=== PATIENT | female | born 1960 | race Caucasian/White ===

== ENCOUNTER 2018-11-20 07:16 | Day surgery (SDC) | payer OTHER ==
[2018-11-17 14:38] VITALS: BMI 42.5
[2018-11-20] VITALS (13 sets, daily range): BP systolic 101–180; BP diastolic 33–70; PULSE 66–98; RESP 16–29; Ht 160 cm; Wt 138.3 kg
[~2018-11-20] VITALS: Ht 160 cm; Wt 138.3 kg
[~2018-11-20 07:16] MED LIST: AMLO5TAB4 PO; ASPI-817 PO; BENA20TA4 PO; GLYCOPYRROLATE 0.4 MG INJ ONE; HYDR-3498 PO; LEVO250T9 PO; NEOSTIGMINE 3 MG/3 ML SYRINGE ONE; TRIA1TAB PO
--- NOTE | 2018-11-20 07:45 | HPN ---
Date/Time of Note Date/Time of Note DATE: 11/20/18 TIME: 07:45 Interval H&P Admission Note Pt. seen H&P reviewed: No system changes YVETTE GAGE MD Nov 20, 2018 07:45
[2018-11-20] MEDS ORDERED: METF-849 PO (08:04)
[2018-11-20] MEDS ORDERED: SIMV10TA PO (08:06)
--- NOTE | 2018-11-20 09:38 | PREAC ---
Date/Time of Note Date/Time of Note DATE: 11/20/18 TIME: 09:37 Anesthesia Eval and Record Evaluation Time Pre-Procedure Interview DATE: 11/20/18 TIME: 09:37 Age 58 Sex female NPO: 8 hrs Preoperative diagnosis R knee pain Planned procedure R knee arthroscopy Past Medical History Past Medical History: Includes Cardio: HTN, Dyslipidemia Endo: Diabetes GI: Morbid obesity Surgery & Anesthesia Issues No known issue Meds Anticoagulation: No Beta Melina within 24 hr: No Reason Beta Melina not given: Pt. not on B-Melina Reported Medications Simvastatin* (Zocor*) 10 Mg Tablet, 10 MG PO QHS, #30 TAB 11/20/18 Metformin* (Glucophage*) 500 Mg Tab, 500 MG PO BID WITH MEALS, #90 TAB 11/20/18 Aspirin* (Aspirin* EC) 81 Mg Tablet.dr, 81 MG PO DAILY, TAB 07/11/15 Triamterene-HCTZ* (Triamterene-HCTZ*) 37.5 - 25 Mg Tablet, 1 TAB PO DAILY, TAB 07/11/15 Benazepril Hcl* (Benazepril Hcl*) 20 Mg Tablet, 20 MG PO DAILY, TAB 07/11/15 Amlodipine Besylate* (Norvasc*) 5 Mg Tablet, 5 MG PO DAILY, TAB 07/11/15 Hydrocodone Bit-Acetaminophen* ([place]*) 5-325 Mg Tab, 1 TAB PO Q4H PRN for PAIN, TAB 08/05/14 Discontinued Scripts Levofloxacin* (Levofloxacin*) 250 Mg Tablet, 250 MG PO DAILY for 3 Days, TAB Prov:[facility] ASSISTANT 07/16/15 Meds reviewed: Yes Allergies Coded Allergies: ibuprofen (Verified Allergy, Severe, NAUSEA, 11/20/18) PER PT Penicillins (Unverified Allergy, Unknown, 07/11/15) naproxen (Verified Adverse Reaction, Unknown, ANXIETY, 11/20/18) PER PT Allergies Reviewed: Yes Labs/Studies Labs Reviewed: Reviewed by anesthesiologist test: Negative Studies: ECG Pre-procedure Exam Airway: Adequate mouth opening, Adequate thyromental dist Mallampati: Mallampati II Teeth: Normal Lung: Normal Heart: Normal ASA Physical Status ASA physical status: 3 Emergency: None Planned Anesthetic General/MAC: ETT Pre-operative Attestations Prior to commencing anesthesia and surgery, the patient was re-evaluated, there was verification of: *The patient's identity *The results of appropriate recent lab work and preoperative vital signs *The above evaluation not changing prior to induction *Anesthetic plan, risk benefits, alternative and complications discussed with patient/family; questions answered; patient/family understands, accepts and wishes to proceed. JESSICA YBARRA Nov 20, 2018 09:38
[2018-11-20] MEDS ORDERED: ROPIVACAINE 0.5 % 30 ML VIAL ONE (09:50)
[2018-11-20] MEDS ORDERED: LIDOCAINE 1% (MPF) 30 ML INJ ONE (09:51)
[2018-11-20] MEDS ORDERED: morphine SULFATE/PF (10 MG/10 ML) INJ ONE (09:51)
[2018-11-20] MEDS ORDERED: HEPARIN 1000 UNITS/ML 10 ML INJ ONE (09:51)
[2018-11-20] MEDS ORDERED: NEOMYC/POLYMYX/BACIT 30 GM OINT ONE (09:51)
[2018-11-20] MEDS ORDERED: METOCLOPRAMIDE 10 MG INJ IV PRN (10:00)
[2018-11-20] MEDS ORDERED: ALBUTEROL 0.083% (NEB) 2.5 MG/3 ML AMP HHN PRN (10:00)
[2018-11-20] MEDS ORDERED: MEPERIDINE 25 MG INJ IV PRN (10:00)
[2018-11-20] MEDS ORDERED: DIPHENHYDRAMINE 50 MG INJ IV PRN (10:00)
[2018-11-20] MEDS ORDERED: hydrALAzine 20 MG INJ IV PRN (10:00)
[2018-11-20] MEDS ORDERED: FENTAnyl 50 MCG/ML VIAL IV PRN ×3 (10:00)
[2018-11-20] MEDS ORDERED: HYDROmorphONE 1 MG/5 ML IV SYRINGE IV PRN ×3 (10:00)
[2018-11-20] MEDS ORDERED: LABETALOL HCL 20MG INJ IV PRN (10:00)
[2018-11-20] MEDS ORDERED: ONDANSETRON 4 MG INJ IV PRN (10:00)
[2018-11-20] MEDS ORDERED: FENTAnyl 50 MCG/ML VIAL ONE (10:14)
[2018-11-20] MEDS ORDERED: LABETALOL HCL 20MG INJ ONE (10:24)
[2018-11-20] MEDS ORDERED: CLINDAMYCIN 900 MG/D5W (PMX) 50 ML IVPB ONE (10:29)
[2018-11-20] MEDS ORDERED: SUCCINYLCHOLINE CHLORIDE 100 MG/5 ML SYG IV ONE (10:29)
[2018-11-20] MEDS ORDERED: ROCURONIUM 50 MG INJ ONE (10:29)
[2018-11-20] MEDS ORDERED: LIDOCAINE 100 MG SYRINGE ONE (10:29)
[2018-11-20] MEDS ORDERED: PROPOFOL 20 ML ONE (10:29)
[2018-11-20] MEDS ORDERED: SUGAMMADEX SODIUM 200 MG/2 ML VIAL IV ONE (11:57)
--- NOTE | 2018-11-20 12:01 | NUR ---
RECEIVED RESPONSIVE WITH OXYGEN MASK ON, BREATHING WITH EASE. RIGHT LEG DRESSING DRY AND INTACT, LEG IMMOBILIZER IN PLACE, LEG/FEET WARM TO TOUCH AND GOOD CAP REFILL, ICE PACK PLACED OVER RIGHT KNEE.
--- NOTE | 2018-11-20 12:11 | OPR ---
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 RIGHT KNEE MEDIAL MENISCAL TEAR RIGHT KNEE MEDIAL TIBIAL PLATEAU INSUFFICIENCY FRACTURE Operation/Procedure Performed Right knee arthroscopy with chondroplasty and partial medial meniscectomy Right knee Harbert of bone marrow aspirate concentrate from the proximal tibia and application to the medial femoral condyle Right knee Arthroscopically aided treatment of tibial fracture, proximal medial tibial plateau; unicondylar, includes internal fixation, when performed (includes arthroscopy) Surgeon Yvette Gage MD Conference Assistant None Anesthesia Type: general, other (Local) Anesthesiologist: JESSICA YBARRA Tourniquet Time: See anesthesia note Estimated Blood Loss: 10 - 50 ml's Transfusion none Specimen none Grafts/Implants Natalia [employer] [id number] Arthrex BMAC Complications none Pt Condition Post Procedure: stable Disposition: PACU Indications Patient is a 58-year-old female with a right knee medial meniscal tear and 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 Given her ongoing pain and failure of nonoperative management; and patient's lack of interest in going fo rward with any sort of further arthroplasty patient would like to proceed with a sub-chondroplasty and a knee arthroscopy. Risk Note: Patient was explained the risks and benefits of surgery and the patient's [place] language including not limited to infection, bleeding, injury to blood vessels, nerves, ligaments or tendons. Risks of anesthesia, deep vein thrombosis and need for reduce future surgery. Patient acknowledged these risk by signing the surgical consent form. Procedure Description The correct operative site was noted and marked in the preoperative holding area. The patient was then brought back into the operative theater, placed supine on the operative table. Right knee was examined under anesthesia. Range of motion was 0-120. There is no varus or valgus or anterior or posterior instability. There is crepitus noticed at the patellofemoral joint. Tourniquet was then placed on the operative extremity thigh non-sterilely. Patient was then given preoperative antibiotics and then prepped and draped in normal sterile fashion. A timeout was taken and all parties in the room agreed it was the correct patient, correct extremity and correct procedure. Using a Jamshidi needle approximately 60 cc of bone marrow aspirate concentrate was removed from the proximal tibia. It was sent off for centrifugation using the ArthGro Davey machine. Standard anterior lateral portal was created and the knee joint was entered with a blunt tipped trocar, followed by 30 arthroscope. Inflow was achieved with a pump and the pressure maintained at approximately 50 mmHg. A routine arthroscopic surgery was performed. Suprapatella pouch was unremarkable. The undersurface of the patella showed advanced grade 1 -2 chondromalacia The medial and lateral gutters were visualized. There were no loose bodies seen. There is an inflamed hypertrophic plica noted in the anterior and superior medial aspect of the knee. The popliteus hiatus was entered and was normal. Lateral compartment was entered and grade 1 chondromalacia was seen on the lateral tibial plateau and femoral condyle. Scope was then brought into the intercondylar notch and an anteromedial portal was made. Shaver was brought into the knee and small amount of fat pad and scar tissue was initially gently debrided. The anterior cruciate ligament was intact and probed. The knee was brought into a valgus position and the medial compartment was entered. The articular surface of the medial femoral condyle and medial tibial plateau revealed diffuse grade 3/4 chondromalacia. There was a degenerative posterior horn medial meniscus tear extending to the midbody that was associated with a radial tear that visualized and debrided gently with a motorized shaver and basket forceps, the posterior horn demonstrated a degenerative tear and fibrillation pattern. The motorized shaver and basket biters were used to smooth the remaining meniscal rim, with care to maintain the peripheral meniscal rim. A probe was introduced and this was carefully probed and was found to be stable. Chondroplasty was then carried out along the weightbearing aspect of the medial femoral condyle, medial tibial plateau, taking care to remove only loose articular cartilage debris and preserve functional articular cartilage. The lateral compartment was reentered and the loose chondral debris was debrided with motorized shaver. Attention was then directed back to the patella femoral joint and a chondroplasty was carried out along the weightbearing aspect of the trochlea and undersurface of the patella to again remove loose debris and maintain functional active articular cartilage. The knee was then irrigated with additional 2 L of lactated Ringers solution. Excess fluid was then drained. Under fluoroscopic guidance the sub-chondroplasty trocar tip was placed into the medial tibial plateau and confirmed to be in the correct position both AP and lateral fluoroscopy. At this time approximately 7 cc of bone marrow aspirate concentrate was then introduced into the medial tibial plateau. Followed by 3 cc of Accu fill calcium phosphate cement. There is blushing in the medial tibial plateau confirming that the medial to plateau had filled with the accufil. And confirmed that there is no leakage into the joint. Range of motion was then attempted showing 0- 125 degrees of motion The portal sites were closed with 4-0 Monocryl and Steri-Strips and dressed with Xeroform and triple antibiotic ointment. The knee was then injected with 20 cc of 0.5% plain ropivacaine. A dry sterile dressing was then applied, followed by a compressive bulky soft bandage and an MITCHELL Wrap. The knee was placed into a T-ROM brace and locked in extension. At the completion of the surgery patient had palpable pulses, soft arms and brisk cap refill. The patient tolerated the procedure well and was taken to the PACU without any complications. All sponge and needle counts were correct. Patient will begin pain medicine and 48 hours of antibiotics as well as aspirin 81 mg for the duration of 4 weeks postoperatively YVETTE GAGE MD Nov 20, 2018 12:11
--- NOTE | 2018-11-20 12:24 | NUR ---
CALM AT THIS TIME MEDICATED FOR SHIVERING AND FOR PAIN, WITH GOOD RESULT.
--- NOTE | 2018-11-20 13:01 | NUR ---
STABLE, COMFORTABLE. RIGHT LEG WARM TO TOUCH, LEG IMMOBILIZER IN PLACE. REPORT TO SHAHLA KAPADIA, PT STATED FAMILY NOT ON SITE NEEDS TO BE CALLED FOR HEALTH EDUCATION ASSISTANT. NO S/S BLEEDING. TRANSFERRED TO [facility].
[2018-11-20] MEDS ORDERED: OXYCODONE/ACETAMINOPHEN (5/325) TAB PO ONE (13:30)
--- NOTE | 2018-11-20 15:55 | SIPON ---
Date/Time of Note Date/Time of Note DATE: 11/20/18 TIME: 15:53 Operative Report Preoperative Diagnosis Left knee ACL Tear Postoperative Diagnosis Left knee ACL Tear Operation/Procedure Performed left knee arthroscopy with acl reconstruction with BTB autograft Surgeon Abelardo Gage MD property assistant Bob Gage MD Second assist: DAR OWEN Anesthesia: general (Pejam), other (Fascia Ilaicuus) Estimated blood loss: minimal Transfusion Required none tt - 135 min at 250 mm Hg Specimen none Grafts/Implants [employer] Soft silk 8 x20 and 9 x 20 Complications none ABELARDO GAGE MD Nov 20, 2018 15:55
--- NOTE | 2018-11-22 07:59 | PAC ---
Date/Time of Note Date/Time of Note DATE: 11/22/18 TIME: 07:59 Post-Anesthesia Notes Post-Anesthesia Note Last documented vital signs Vital Signs Date Temp Pulse Resp B/P (MAP) Pulse Ox O2 O2 Flow FiO2 Time Delivery Rate 11/20/18 98.0 13:31 11/20/18 72 16 121/59 93 Room Air 13:07 (79) 11/20/18 8.0 12:21 Activity: WNL Respiratory function: WNL Cardiovascular function: WNL Mental status: Baseline Pain reasonably controlled: Yes Hydration appropriate: Yes Nausea/Vomiting absent: Yes JESSICA YBARRA Nov 22, 2018 07:59
== END 2018-11-20 14:47 | disposition home or self-care (01) ==
LOC: SDS 07:16
PROVIDERS: ATTEND Orthopaedic Surgery
DX: S83.241D Other tear of medial meniscus, current injury, right knee, subsequent encounter (principal); X58.XXXD Exposure to other specified factors, subsequent encounter; M94.261 Chondromalacia, right knee; I10 Essential (primary) hypertension; E78.5 Hyperlipidemia, unspecified; E11.9 Type 2 diabetes mellitus without complications; E66.01 Morbid (severe) obesity due to excess calories; Z68.43 Body mass index [BMI] 50.0-59.9, adult
CPT/HCPCS: 29855; 29881; 73562; 82306; 82962; J1170; J1644; J2001; J2175; J2274; J2405; J2795; J3010; Z7610; J2710